=== PATIENT | female | born 1960 | race Two or more races ===

== ENCOUNTER 2024-04-19 18:26 | Emergency (ER) | payer BC ==
[~2024-04-19] VITALS: Ht 152.4 cm; Wt 63.3 kg
[2024-04-19 18:45] LABS: BASOPHILS 0.7 % (0-2); EOSINOPHILS 3.1 % (0-6); HEMATOCRIT 38.3 % (35.0-50.0); HEMOGLOBIN 13.1 g/dL (12.0-18.0); LYMPHOCYTES 37.4 % (24-44); MCHC 34.1 g/dl (30-36); MCV 90.8 fl (81-99); MONOCYTES 5.6 % (0-12); NEUTROPHILS 53.2 % (39-80); PLATELET COUNT 243 K/uL (140-440); RBC 4.22 M/ul (4.3-5.7); RDW 13.5 (10.5-15.0)
[2024-04-19] MEDS ORDERED: NITROGLYCERIN 0.4 MG SUBL SL PRN (18:45)
[2024-04-19] MEDS ORDERED: ASPIRIN 81 MG CHEW PO ONE ×2 (18:45→19:00)
[2024-04-19] MEDS ORDERED: LEVOTHYROXINE75 MC1 PO (18:54)
[2024-04-19] MEDS ORDERED: ASPIRIN REGIMEN81 MG PO (18:55)
[2024-04-19 19:02] LABS: ALBUMIN 3.9 g/dL (3.4-5.0); ALBUMIN/GLOBULIN RATIO 1.11 (1.1-2.4); ANION GAP 11.7 (7-21); BILIRUBIN, TOTAL 0.4 ng/dL (0.2-1.0); BUN/CREATININE RATIO 12.5 (6.0-28.6); CREATININE, SERUM 0.96 mg/dL (0.55-1.02); MAGNESIUM 2.1 mg/dL (1.8-2.4); POTASSIUM 3.7 mmol/L (3.5-5.1); PROTEIN, TOTAL 7.4 g/dL (6.4-8.2)
[2024-04-19] MEDS ORDERED: LIPITOR40 MG PO (19:06)
[2024-04-19] MEDS ORDERED: KETOROLAC TROMETHAMINE 15 MG/ML VIAL IV ONE (19:15)
[2024-04-19] MEDS ORDERED: KETOROLAC TROMETHAMINE 30 MG/ML VIAL IV ONE (19:15)
[2024-04-19] MEDS ORDERED: FAMOTIDINE 20 MG/ 2 ML VIAL IV ONE (19:15)
[2024-04-19] MEDS ORDERED: LACTATED RINGER'S 1,000 ML IV ONE (19:30)
[2024-04-19] MEDS ORDERED: LIDOCAINE HCL 4% 1 EACH PATCH TD ONE (20:15)
[2024-04-19] MEDS ORDERED: LIDODERM1 EACH TOP (20:18)
[2024-04-19 20:43] VITALS: BP 135/77
--- NOTE | 2024-04-20 11:22 | EKG ---
[facility] [address] [facility] [place], [place] [address] Signed Normal sinus rhythm Cannot rule out Anterior infarct , age undetermined Abnormal ECG No previous ECGs available Confirmed by Niraj Joaquin MD ([id number]) on 04/20/2024 11:22:07 AM Electronically Signed By: NIRAJ JOAQUIN MD 04/20/241121 PATIENT NAME: MAAME CASTELLONJALI Electrocardiogram DATE OF : 64 PHYSICIAN: NIRAJ JOAQUIN MD REPORT #: [id number] REPORT IS CONFIDENTIAL AND NOT TO BE RELEASED WITHOUT AUTHORIZATION
== END 2024-04-19 20:43 | disposition home or self-care (01) ==
LOC: ED 18:26
PROVIDERS: Emergency Medicine
DX: R07.1 Chest pain on breathing (principal); Z79.890 Hormone replacement therapy; Z79.82 Long term (current) use of aspirin; Z79.899 Other long term (current) drug therapy
CPT/HCPCS: 36415; 71045; 80053; 83690; 83735; 84484; 85025; 93005; 93010; 96374; 96375; 99285-25; A9270; J1885; J7121